=== PATIENT | female | born 1935 | race Caucasian/White ===

== ENCOUNTER → 2018-02-12 10:48 | Outpatient (CLI) | payer MEDICARE ==
[2014-01-29 11:21] VITALS: BMI 20.6
[~2018-02-12 10:48] MED LIST: ASPIRIN325 MG PO; CALCIUM CITRATE1 TAB PO; LOVAZA1 G PO; MAGONATE PO; NORVASC2.5 MG OR; ORACEA40 MG PO
== END | disposition home or self-care (01) ==
LOC: D.US 10:48
DX: R94.5 Abnormal results of liver function studies (principal)

== ENCOUNTER 2018-06-12 08:16 | Outpatient (CLI) | payer MEDICARE ==
[~2018-06-12] VITALS: Ht 165.1 cm; Wt 47.7 kg
[~2018-06-12 08:16] MED LIST changes: -ASPIRIN325 MG PO; +BAYER CHEWABLE81 MG PO; -CALCIUM CITRATE1 TAB PO; +CITRACAL + D E1 EACH PO; -NORVASC2.5 MG OR; +NORVASC2.5 MG PO
[2018-06-12 08:37] LABS: BASOPHILS 0.2 % (0-2); EOSINOPHILS 0.9 % (0-7); HEMATOCRIT 41.9 % (36.0-48.0); HEMOGLOBIN 13.8 g/dL (12-16); LYMPHOCYTES 26.1 % (15-50); MCH 33.5 pg (26.0-34.0); MCHC 32.9 g/dL (31.0-37.0); MCV 101.7 fL (80.0-100.0); MEAN PLATELET VOLUME 11.7 fL (7.4-10.4); MONOCYTES 7.9 % (2-11); NEUTROPHILS 64.9 % (40-80); PLATELET COUNT 173 10x3/uL (130-400); RBC 4.12 10x6/uL (4.00-5.40); RDW 13.7 % (11.5-14.5); WBC 4.7 10x3/uL (4.8-10.8)
[2018-06-12 08:46] LABS: ANION GAP 7.9 mmol/L (8-16); CALCIUM 9.5 mg/dL (8.5-10.1); CREATININE - SERUM 0.8 mg/dL (0.6-1.3); POTASSIUM - SERUM 3.9 mmol/L (3.5-5.1)
[2018-06-12 08:52] LABS: APTT 30.9 SECONDS (22.8-39.4); INR 0.92 (0.85-1.17); PROTIME 11.9 SECONDS (11.6-15.0)
[2018-06-12] MEDS ORDERED: DESERYL50 M2 PO (09:02)
[2018-06-12 09:28] VITALS: Ht 165.1 cm; Wt 47.7 kg
== END 2018-06-12 16:40 | disposition home or self-care (01) ==
LOC: D.SP 08:16 → D.CT 11:00 → D.SP 16:40
PROVIDERS: Radiology Diagnostic Radiology
DX: R74.8 Abnormal levels of other serum enzymes (principal); Z01.812 Encounter for preprocedural laboratory examination

== ENCOUNTER → 2018-06-21 12:51 | Outpatient (CLI) | payer MEDICARE ==
[2018-06-12 09:28] VITALS: BMI 17.5
[~2018-06-21 12:51] MED LIST changes: +DESERYL50 M2 PO
[2018-06-22 17:12] LABS: ANA REFLEX - DIRECT Negative (Negative)
[2018-06-23 19:07] LABS: MITOCHONDRIAL ANTIBODY 116.8 Units (0.0-20.0)
== END | disposition home or self-care (01) ==
LOC: D.LAB 12:51
PROVIDERS: Internal Medicine Gastroenterology
DX: R79.89 Other specified abnormal findings of blood chemistry (principal); K74.3 Primary biliary cirrhosis; L29.8 Other pruritus

== ENCOUNTER → 2018-06-29 12:51 | Outpatient (CLI) | payer MEDICARE ==
[2018-06-12 09:28] VITALS: BMI 17.5
== END | disposition home or self-care (01) ==
LOC: D.NM 12:51
DX: Z00.01 Encounter for general adult medical examination with abnormal findings (principal); L29.9 Pruritus, unspecified; R63.4 Abnormal weight loss; R94.5 Abnormal results of liver function studies

== ENCOUNTER → 2018-07-25 11:15 | Outpatient (CLI) | payer MEDICARE ==
[2018-06-12 09:28] VITALS: BMI 17.5
[2018-07-25 13:20] LABS: HEMATOCRIT 42.3 % (36.0-48.0); HEMOGLOBIN 13.9 g/dL (12-16); MCH 33.6 pg (26.0-34.0); MCHC 32.9 g/dL (31.0-37.0); MCV 102.2 fL (80.0-100.0); MEAN PLATELET VOLUME 12.7 fL (7.4-10.4); PLATELET COUNT 166 10x3/uL (130-400); RBC 4.14 10x6/uL (4.00-5.40); RDW 13.2 % (11.5-14.5); WBC 4.3 10x3/uL (4.8-10.8)
[2018-07-25 13:23] LABS: ALBUMIN 3.5 g/dL (3.4-5.0); BILIRUBIN - DIRECT 0.53 mg/dL (0.00-0.30); BILIRUBIN - INDIRECT 0.18 mg/dL (0.00-1.00); BILIRUBIN - TOTAL 0.71 mg/dL (0.2-1.3); PROTEIN - SERUM 8.5 g/dL (6.4-8.2)
[2018-07-25 13:29] LABS: INR 0.94 (0.85-1.17); PROTIME 12.1 SECONDS (11.6-15.0)
[2018-07-25 14:08] LABS: LYMPHOCYTES 38 % (15-50); MONOCYTES 7 % (2-11); NEUTROPHILS 54 % (40-80); PLATELET ESTIMATE NORMAL
[2018-07-26 08:23] LABS: HEPATITIS C ANTIBODY 0.1 S/CO RAT (0.0-0.9)
[2018-07-26 13:19] LABS: ANA REFLEX - DIRECT Negative (Negative)
[2018-07-27 12:20] LABS: MITOCHONDRIAL ANTIBODY 124.4 Units (0.0-20.0); SMOOTH MUSCLE ABS (ACTIN) 46 Units (0-19)
== END | disposition home or self-care (01) ==
LOC: D.US 11:15
PROVIDERS: Internal Medicine Gastroenterology
DX: R79.89 Other specified abnormal findings of blood chemistry (principal); R63.4 Abnormal weight loss; L29.9 Pruritus, unspecified

== ENCOUNTER → 2018-12-24 11:08 | Outpatient (CLI) | payer MEDICARE ==
[2018-06-12 09:28] VITALS: BMI 17.5
[2018-12-24 12:06] LABS: ALBUMIN 3.4 g/dL (3.4-5.0); BILIRUBIN - DIRECT 0.3 mg/dL (0.00-0.30); BILIRUBIN - INDIRECT 0.27 mg/dL (0.00-1.00); BILIRUBIN - TOTAL 0.57 mg/dL (0.2-1.3); PROTEIN - SERUM 7.7 g/dL (6.4-8.2)
== END | disposition home or self-care (01) ==
LOC: D.LAB 12-19 09:30 → D.US 09:00 → D.LAB 11:08
PROVIDERS: ATTEND Internal Medicine Gastroenterology
DX: K74.3 Primary biliary cirrhosis (principal); K74.0 Hepatic fibrosis

== ENCOUNTER → 2019-03-29 11:01 | Outpatient (CLI) | payer MEDICARE ==
[2018-06-12 09:28] VITALS: BMI 17.5
[2019-03-29 11:27] LABS: BASOPHILS 0.3 % (0-2); EOSINOPHILS 1.1 % (0-7); HEMATOCRIT 42.1 % (36.0-48.0); HEMOGLOBIN 14.4 g/dL (12-16); LYMPHOCYTES 26.7 % (15-50); MCH 33.7 pg (26.0-34.0); MCHC 34.2 g/dL (31.0-37.0); MCV 98.6 fL (80.0-100.0); MEAN PLATELET VOLUME 12.1 fL (7.4-10.4); MONOCYTES 6.1 % (2-11); NEUTROPHILS 65.8 % (40-80); PLATELET COUNT 154 10x3/uL (130-400); RBC 4.27 10x6/uL (4.00-5.40); RDW 12.8 % (11.5-14.5); WBC 3.8 10x3/uL (4.8-10.8)
[2019-03-29 11:40] LABS: ALBUMIN 3.7 g/dL (3.4-5.0); ALKALINE PHOSPHATASE 350 U/L (46-116); ALT (SGPT) 75 U/L (10-68); BILIRUBIN - DIRECT 0.37 mg/dL (0.00-0.30); BILIRUBIN - INDIRECT 0.24 mg/dL (0.00-1.00); BILIRUBIN - TOTAL 0.61 mg/dL (0.2-1.3); CALC OSMOLALITY 288 mosm/kg (275-300); CALCIUM 9.4 mg/dL (8.5-10.1); CARBON DIOXIDE 33.3 mmol/L (21.0-32.0); CHLORIDE - SERUM 107 mmol/L (98-107); CHOL - HDL RATIO 3.3 ratio (2.3-4.1); CHOLESTEROL, TOTAL 258 mg/dL (0-200); CREATININE - SERUM 0.7 mg/dL (0.6-1.3); GLUCOSE 91 mg/dL (74-106); HDL CHOLESTEROL 78 mg/dL (32-96); LDL CHOLESTEROL 159 mg/dL (0-100); POTASSIUM - SERUM 4.6 mmol/L (3.5-5.1); PROTEIN - SERUM 7.8 g/dL (6.4-8.2); SODIUM 144 mmol/L (136-145); TRIGLYCERIDE 108 mg/dL (30-200); UREA NITROGEN 19 mg/dL (7-18); eGFR NON AFRICAN AMERICAN 84 mL/min (90-120)
[2019-03-29 12:02] LABS: INR 0.92 (0.85-1.17); PROTIME 11.9 SECONDS (11.6-15.0)
== END | disposition home or self-care (01) ==
LOC: D.LAB 11:01
PROVIDERS: ATTEND Internal Medicine Gastroenterology
DX: K80.80 Other cholelithiasis without obstruction (principal); R74.8 Abnormal levels of other serum enzymes; J84.10 Pulmonary fibrosis, unspecified

== ENCOUNTER → 2019-06-27 12:12 | Outpatient (CLI) | payer MEDICARE ==
[2018-06-12 09:28] VITALS: BMI 17.5
[2019-06-27 12:48] LABS: BASOPHILS 0.2 % (0-2); EOSINOPHILS 0.2 % (0-7); HEMATOCRIT 43.5 % (36.0-48.0); HEMOGLOBIN 14.3 g/dL (12-16); IMMATURE GRANULOCYTES 0.2 % (0-5); LYMPHOCYTES 25.2 % (15-50); MCH 33.7 pg (26.0-34.0); MCHC 32.9 g/dL (31.0-37.0); MCV 102.6 fL (80.0-100.0); MONOCYTES 6.9 % (2-11); NEUTROPHILS 67.3 % (40-80); PLATELET COUNT 168 10x3/uL (130-400); RBC 4.24 10x6/uL (4.00-5.40); RDW 12.7 % (11.5-14.5); WBC 5.2 10x3/uL (4.8-10.8)
[2019-06-27 13:05] LABS: ALBUMIN 3.6 g/dL (3.4-5.0); ANION GAP 8.2 mmol/L (8-16); BILIRUBIN - DIRECT 0.33 mg/dL (0.00-0.30); BILIRUBIN - INDIRECT 0.29 mg/dL (0.00-1.00); BILIRUBIN - TOTAL 0.62 mg/dL (0.2-1.3); CALCIUM 9.4 mg/dL (8.5-10.1); CARBON DIOXIDE 32.8 mmol/L (21.0-32.0); CREATININE - SERUM 0.8 mg/dL (0.6-1.3); PROTEIN - SERUM 7.5 g/dL (6.4-8.2)
[2019-06-27 13:16] LABS: INR 0.94 (0.85-1.17); PROTIME 12.1 SECONDS (11.6-15.0)
== END | disposition home or self-care (01) ==
LOC: D.US 06-25 08:30 → D.LAB 06-25 09:00 → D.US 06-25 11:00 → D.LAB 06-25 11:30
PROVIDERS: ATTEND Internal Medicine Gastroenterology
DX: K74.3 Primary biliary cirrhosis (principal)

== ENCOUNTER 2019-08-07 11:00 | Outpatient (CLI) | payer MEDICARE ==
[~2019-08-07] VITALS: Ht 165.1 cm; Wt 44.7 kg
--- NOTE | ~2019-08-07 | HEMODYNAMI ---
PATIENT:GABRIELLA CANTU MEDICAL RECORD: [id number] : 33 LOCATION:D.CAT ADMISSION DATE: 08/07/19 Generatedon:08/07/201914:06 Patient name: GABRIELLA CANTU Patient #: [id number] SSN: [id number] : 1935 Date of study: 08/07/2019 Page: Of Hemodynamic Procedure Report Patient Data Patient Demographics Procedure consent was obtained First Name: GABRIELLA Gender: Female Last Name: ALONDRA : 1935 Middle Initial: FARIBA Age: 84 year(s) Patient #: [id number] Race: SSN: [id number] Additional ID: [id number] Contact details [address]: [address] [place] [address] State: [place] City: [place] Zip code: [address] Past Medical History Allergies Allergen Reaction Date Comments Reported Other allergy 08/07/2019 ERYTHROMYCIN, HYDROCHLOROQUINE, LOVAZA, OS-BASIA, PCN, VANCOMYCIN Admission Admission Data Admission Date: 08/07/2019 Admission Time: 11:00 Lab Results Lab Result Date: 08/07/2019 Lab Result Time: 0:00 Biochemistry Name Units Result Min Max BUN mg/dl 27 --(----)-* 7 18 Creatinine mg/dl 0.7 --(*---)-- 0.6 1.3 eGFR ml/min 84 -*(----)-- 90 120 NONAFRICAN CBC Name Units Result Min Max Hematocrit % 39.6 -*(----)-- 42 54 Hemoglobin g/dl 12.8 -*(----)-- 13.5 17.5 Procedure Procedure Types Cath Procedure Diagnostic Procedure Sedation Charges Moderate Sedation up to 30 minutes PCI Procedure Hemochron ACT Test Peripheral Cath Diagnostic Procedure State Attorney Peripheral Procedures AFRO (Diagnostic) Peripheral vascular Intervention Angioplasty Angioplasty Fem/Pop Procedure Description Procedure Date Procedure Date: 08/07/2019 Procedure Start Time: 13:18 Procedure End Time: 14:05 Procedure Staff Name Function Luis Kirby MD Performing Physician Emilia Zheng RT Monitor Brielle Rutherford RT Scrub Hank Eduardo RN Nurse Indication Coronary risk factors Procedure Data Cath Procedure Fluoroscopy Diagnostic fluoroscopy Total fluoroscopy Time: 7.9 time: 7.9 min min Diagnostic fluoroscopy Total fluoroscopy dose: 105 dose: 105 mGy mGy Contrast Material Contrast Material Type Amount (ml) Isovue 370 87 Entry Location Entry Primary Successful Side Size Upsize Upsize Entry Closure Succes sful Closure Location (Fr) 1 (Fr) 2 (Fr) Remarks Device Remarks Femoral Left 5 Fr 6 Fr Exoseal artery Short Estimated blood loss: 10 ml Diagnostic catheters Device Type Used For End Catheter Placement DIAGNOSTIC UF 5Fr Procedure catheter ([id number]) DIAGNOSTIC IM 5Fr Procedure catheter ([id number]) Procedure Complications No complications Procedure Medications Medication Administration Route Dosage Oxygen etCO2 Nasal cannula 2 l/min Lidocaine 2% added to field 20 Heparin Flush Bag added to field 2 bags (1000units/500ml NS) 0.9% NaCl I.V. 100 ml/hr Versed I.V. 1 mg Fentanyl I.V. 50 mcg Versed I.V. 1 mg Heparin Bolus I.V. 4000 units Fentanyl I.V. 50 mcg Hemodynamics Rest HGB: 12.8 (g/dl) Heart Rate: 64 (bpm) Snapshots Pre Cath Intra NCS Post Cath Vital Signs Time Heart Resp SPO2 etCO2 NIBP (mmHg) Rhythm Pain Sedation Rate (ipm) (%) (mmHg) Status Level (bpm) 13:07:55 73 12 96 0 138/65(99) NSR 0 (11) 10(A) , No pain 13:12:09 69 22 95 5.2 126/59(80) NSR 0 (11) 10(A) , No pain 13:16:19 69 14 98 1.5 120/59(89) NSR 0 (11) 10(A) , No pain 13:20:25 69 13 98 0.7 117/58(85) NSR 0 (11) 9(A) , No pain 13:24:32 69 28 98 12.8 105/50(77) NSR 0 (11) 9(A) , No pain 13:28:36 69 25 98 11.2 114/54(86) NSR 0 (11) 9(A) , No pain 13:32:42 70 22 98 12 114/53(82) NSR 0 (11) 9(A) , No pain 13:36:47 70 23 98 15 117/53(88) NSR 0 (11) 9(A) , No pain 13:40:56 70 20 98 5.2 113/54(89) NSR 0 (11) 9(A) , No pain 13:45:01 70 19 97 9.7 110/56(88) NSR 0 (11) 9(A) , No pain 13:49:05 71 19 97 42.9 120/58(89) NSR 0 (11) 9(A) , No pain 13:53:11 73 15 97 16.5 117/59(92) NSR 0 (11) 10(A) , No pain 13:57:17 75 17 97 31.6 123/61(102) NSR 0 (11) 10(A) , No pain 14:01:24 79 36 95 33.1 124/63(95) NSR 0 (11) 10(A) , No pain 14:05:30 73 11 97 9.7 130/66(101) NSR 0 (11) 10(A) , No pain Medications Time Medication Route Dose Verified Delivered Reason Notes Effectiveness by by 13:10:42 Oxygen etCO2 2 Luis Buffie used for Nasal l/min Kofi Eduardo RN procedure cannula 13:10:48 Lidocaine 2% added 20ml Luis Luis for local to vial Kofi Kirby MD anesthetic field 13:10:54 Heparin Flush added 2 Luis Luis used for Bag to bags Kofi Kirby MD procedure (1000units/500ml field NS) 13:11:04 0.9% NaCl I.V. 100 Luis Buffie Per physician ml/hr Kofi Eduardo RN 13:15:25 Versed I.V. 1 mg Luis Buffie for sedation Kofi Eduardo RN 13:15:31 Fentanyl I.V. 50 Luis Buffie for sedation mcg Kofi Eduardo RN 13:21:04 Versed I.V. 1 mg Luis Buffie for sedation Kofi Eduardo RN 13:28:26 Fentanyl I.V. 50 Luis Buffie for sedation mcg Kofi Eduardo RN 13:38:06 Heparin Bolus I.V. 4000 Luis Buffie for verif ied units Kofi Eduardo RN anticoagulation with dr kirby Procedure Log Time Note 12:38:03 Informed consent obtained and on chart 12:45:23 Lab Result : eGFR NONAFRICAN 84 ml/min 12:45:23 Lab Result : Hemoglobin 12.8 g/dl 12:45:23 Lab Result : BUN 27 mg/dl 12:45:23 Lab Result : Creatinine 0.7 mg/dl 12:45:23 Lab Result : Hematocrit 39.6 % 12:45:30 Diagnostic Cath Status : Elective 12:46:01 Indication : Coronary risk factors 12:46:07 Procedure Status Elective Heart Cath (OP). 12:46:11 Brielle Rutherford RT(R) sent for patient. Start room use. 12:46:47 Time tracking: Regular hours (M-F 7:00 - 5:00) 12:46:52 Plan of Care:Hemodynamics will remain stable., Cardiac rhythm will remain stable., Comfort level will be maintained., Respiratory function will remain adequate., Patient/ family verbilizes understanding of procedure., Procedure tolerated without complication., Recovers from procedure without complications.. 12:47:07 H&P Date Dictated: 07/25/2019 Within 30 days and on chart.. 12:47:10 Pre-procedure instructions explained to patient. 12:47:11 Pre-op teaching completed and patient verbalized understanding. 12:47:15 Family in waiting room. 12:47:18 Patient NPO since Midnight. 12:48:17 Patient allergic to Other allergyERYTHROMYCIN, HYDROCHLOROQUINE, LOVAZA, OS-BASIA, PCN, VANCOMYCIN 12:48:38 Lab results completed and on chart. 12:48:43 Stress Test: no; N/A ? 13:06:36 Patient received from Pre/Post Procedure Room to CCL 1 Alert and oriented. Tansferred to table in Supine position. 13:06:38 Warm blankets applied, and adam hugger turned on for patient comfort. 13:06:38 Correct patient and procedure confirmed by team. 13:06:39 ECG and BP/O2 sat monitors applied to patient. 13:06:41 Vital chart was started 13:06:46 Is the patient allergic to Iodine/contrast media? Yes. 13:06:47 Was the patient premedicated? Yes 13:06:49 Is patient on blood thinner?Yes 13:06:52 ACC The patient was administered the following blood thiners within the last 24 hours: ACCAspirin 13:06:55 Patient diabetic? No. 13:06:56 If diabetic: On Metformin? N/A 13:07:00 Patient not . Patient is over age 55. 13:07:01 ----Pre-sedation anethsthesia assessment.---- 13:07:05 Previous problem with sedation/anesthesia? No ? 13:07:06 Snore? Yes 13:07:08 Sleep apnea? No 13:07:09 Deviated septum? No 13:07:10 Opens mouth fully? Yes 13:07:11 Sticks out tongue? Yes 13:07:15 Airway obstruction? Yes COPD 13:07:19 Dentures? No ? 13:07:23 Pre procedure: right dorsailis pedis pulse 2+ Normal; easily identifiable; not easily obliterated 13:07:26 Patient pain scale 0/10 ?. 13:07:33 Bilateral groins area was prepped with chlora-prep and draped in sterile fashion 13:07:34 Alarms reviewed by R. N. 13:07:34 Sharps counted by scrub and verified by R.N. 13:07:44 Rhythm: sinus rhythm 13:07:46 Baseline sample Acquired. 13:07:46 Full Disclosure recording started 13:08:00 Use device set Femoral Dx 13:08:02 ACIST Syringe (71662) opened to sterile field. 13:08:03 Bag Decanter (2002S) opened to sterile field. 13:08:04 Medline Cath Pack ([id number]) opened to sterile field. 13:08:05 ACIST Hand Control (11774) opened to sterile field. 13:08:07 ACIST Manifold (49657) opened to sterile field. 13:08:11 SHEATH 5FR [place] ([id number]) opened to sterile field. 13:08:11 EMERALD Guide Wire (001-918) opened to sterile field. 13:09:56 IV patent on arrival in right forearm with 0.9% NaCl at O. 13:10:42 Oxygen 2 l/min etCO2 Nasal cannula was administered by Hank Eduardo RN; used for procedure; Verbal order read back and verified. 13:10:48 Lidocaine 2% 20ml vial added to field was administered by Luis Kirby MD; for local anesthetic; Verbal order read back and verified. 13:10:54 Heparin Flush Bag (1000units/500ml NS) 2 bags added to field was administered by Luis Kirby MD; used for procedure; Verbal order read back and verified. 13:11:04 0.9% NaCl 100 ml/hr I.V. was administered by Hank Eduardo RN; Per physician; Verbal order read back and verified. 13:14:19 --------ALL STOP TIME OUT------ 13:14:20 Final Timeout: patient, procedure, and site verified with staff and physician. All members of the team are in agreement. 13:14:23 Bilateral groins site verified by team. 13:14:26 Fire Safety Assessment: A--An alcohol-based skin anteseptic being used preoperatively., C--Open oxygen or nitrous oxide is being used., D--An ESU, laser, or fiber-optic light is being used. 13:14:33 Physical assessment completed. ASA score P 2 - A patient with mild systemic disease as per Luis Kirby MD. 13:14:36 2) 60-89 Mildly reduced kidney function, and other findings (as for stage 1) point to kidney disease. 13:14:40 Maximum allowable contrast dose (3.7 X eGFR X 0.75)233 ml. 13:14:44 Sedation plan: IV Moderate Sedation Medication:Versed, Fentanyl 13:15:25 Versed 1 mg I.V. was administered by Hank Eduardo RN; for sedation; Verbal order read back and verified. 13:15:31 Fentanyl 50 mcg I.V. was administered by Hank Eduardo RN; for sedation; Verbal order read back and verified. 13:18:01 Procedure started. 13:18:27 Local anesthetic to left femerol artery with Lidocaine 2% by Luis Kirby MD.INITIAL ACCESS ONLY 13:21:04 Versed 1 mg I.V. was administered by Hank Eduardo RN; for sedation; Verbal order read back and verified. 13:21:37 A 5 Fr sheath was inserted into the Left Femoral artery 13:21:46 A DIAGNOSTIC UF 5Fr catheter ([id number]) was advanced over the wire and used for Procedure. 13:22:54 Abdominal angiogram w/ runoff was performed. 13:23:11 Injector settings: Ml/sec: 10, Volume: 20, 13:23:32 Left leg runoff performed. 13:23:58 Right leg runoff performed. 13:27:24 Catheter exchanged over wire. 13:28:08 A DIAGNOSTIC IM 5Fr catheter ([id number]) was advanced over the wire and used for Procedure. 13:28:09 A 5 FrFr IM catheter was inserted over the wire. 13:28:26 Fentanyl 50 mcg I.V. was administered by Hank Eduardo RN; for sedation; Verbal order read back and verified. 13:29:13 Right leg runoff performed. 13:32:42 Catheter exchanged over wire. 13:32:43 Proceeding to intervention. OF THE RT 13:34:53 INFLATOR Merit BasixCompak ([id number]) opened to sterile field. 13:34:54 WHISPER 300cm guide wire ([id number]) opened to sterile field. 13:36:28 SHEATH 6FR Destination (RSR01) opened to sterile field. 13:37:20 Sheath upsized to a 6 Fr Short. 13:37:20 6FR DESTINATION SHEATH INSERTED. 13:37:57 WHISPER 300 ADVANCED 13:38:06 Heparin Bolus 4000 units I.V. was administered by Hank Eduardo RN; for anticoagulation; verified with dr kirby Verbal order read back and verified. 13:40:17 Wire advanced across lesion. 13:42:27 Inflate balloon Inflation number: 1 A SABER 4.0 x 4 x 150 balloon ([id number]) was prepped and advanced across the Distal Femoral, Right , then inflated to 6 TRAVON for 0:00 (min:sec) . 13:43:21 Inflation number: 2 The SABER 4.0 x 4 x 150 balloon ([id number]) was reinflated across the Distal Femoral, Right , to 5 TRAVON for 0:00 (min:sec) . 13:47:55 Inflation number: 1 The SABER 4.0 x 4 x 150 balloon ([id number]) was reinflated across the Proximal Popliteal, Right , to 7 TRAVON for 0:00 (min:sec) . 13:51:19 BALLOON, WIRE, GUIDE REMOVED. 13:53:25 Sheath removed intact; hemostasis achieved with Exoseal to the Left Femoral artery. 13:54:08 SHEATH 6FR Destination (RSR01) opened to sterile field. 13:54:16 EXOSEAL 6Fr (EX600) opened to sterile field. 13:54:20 Procedure ended.(Physican Out) 13:54:44 Fluoroscopy time 07.90 minutes. 13:54:48 Fluoroscopy dose: 105 mGy 13:54:48 Flurop Dose total: 105 13:54:54 Dose Area Product 47011 mGy/cm. 13:55:05 Contrast amount:Isovue 370 87ml. 13:55:08 Maximum allowable dose exceeded? No. 13:55:09 Sharps counted by scrub and verified by R.N. 13:55:17 Post-op/insertion site Left Femoral artery dressed using a 4 x 4 and Tegaderm. 13:55:24 Post left femerol artery:stable, soft, clean and dry 13:55:26 Post Procedure Pulses reassessed and unchanged 13:55:30 Post procedure: right dorsailis pedis pulse 2+ Normal; easily identifiable; not easily obliterated. 13:55:33 Post-procedure physical assessment completed. ASA score P 2 - A patient with mild systemic disease as per Luis Kirby MD. 13:55:36 Post procedure rhythm: unchanged. 13:55:39 Estimated blood loss: 10 ml 13:55:42 Post procedure instruction explained to patient.Patient verbalizes understanding. 13:55:44 Patient needs reinforcement of post procedure teaching. 13:55:46 ACT drawn and resulted at 259 seconds. (normal therapeutic range 180-240 seconds). 14:02:27 Procedure type changed to Cath procedure, Diagnostic procedure, Sedation Charges, Moderate Sedation up to 30 minutes, PCI procedure, Hemochron ACT Test, Peripheral Cath Diagnostic Procedure, State Attorney Peripheral Procedures, AFRO (Diagnostic), Peripheral vascular Intervention, Angioplasty, Angioplasty Fem/Pop 14:04:59 Procedure Complication : No complications 14:05:01 Vital chart was stopped 14:05:03 [facility] Findings: MVD- PCI performed (see procedure note) 14:05:08 Procedure ended. 14:05:08 Full Disclosure recording stopped 14:05:19 Procedure and supply charges have been captured, reviewed, submitted and are correct. 14:05:22 Operative report dictated upon procedure completion. 14:05:23 See physician's report for complete and final results. 14:05:24 Report given to Pre/Post Procedure Room. 14:05:28 Patient transfered to Pre/Post Procedure Room with Stretcher. 14:05:29 End room use (Document Last) 14:06:03 End room use (Document Last) 14:06:26 End room use (Document Last) Intervention Summary Intervention Notes Time ActionType Lesion and Equipment Action# Pressure Duration Attributes Used 13:42:27 Inflate Distal SABER 4.0 x 1 6 00:00 balloon Femoral, 4 x 150 Right balloon ([id number]) 13:43:21 Reinflate Distal SABER 4.0 x 2 5 00:00 balloon Femoral, 4 x 150 Right balloon ([id number]) 13:47:55 Reinflate Proximal SABER 4.0 x 1 7 00:00 balloon Popliteal, 4 x 150 Right balloon ([id number]) Device Usage Item Name Manufacture Quantity Catalog Hospital Part Current Minimal L ot# / Number Charge Number Stock Stock Serial# Code ACIST Acist 1 [id number] 278654 886648 019826 20 Syringe Medical (18138) Systems Inc Bag Microtek 1 2001S 282731 06618 702638 5 Decanter Medical Inc. () Medline Medline 1 [id number] 12284 337533 5 Cath Pack ([id number]) ACIST Hand Acist 1 74864 112070 229898 896051 5 Control Medical (82865) Systems Inc ACIST Acist 1 17091 349842 700592 037587 5 Manifold Medical (39715) Systems Inc SHEATH 5FR Terumo 1 PUI932 623697 087657 881210 5 [place] (VVW584) EMERALD Cardinal 1 502-455 424739 569935 934195 5 Guide Wire Health (502-455) DIAGNOSTIC Cardinal 1 [id number] 619151 683351 212697 10 UF 5Fr Health catheter (976542P2) DIAGNOSTIC Cardinal 1 [id number] 323853 683033 597771 5 IM 5Fr Health catheter ([id number]) INFLATOR Merit 1 SK2442 263067 561936 165437 15 [facility] Medical BasixCompak (VA2044) WHISPER Pyle 1 [id number] 950160 446259 991524 5 300cm guide Vascular wire ([id number]) SHEATH 6FR Terumo 2 RSR01 254878 13928 811977 5 Destination (RSR01) SABER 4.0 x Cardinal 1 [id number] 222344 091074 5 4 x 150 Health balloon ([id number]) EXOSEAL 6Fr Cardinal 1 EX600 032640 743495 573765 10 (EX600) Health Signature Audit [place] Stage Time Signature Unsigned Intra-Procedure 08/07/2019 Emilia Zheng 2:06:03 PM RT(R) Intra-Procedure 08/07/2019 Hank Eduardo RN 2:06:26 PM Intra-Procedure 08/07/2019 Luis Kirby MD 2:06:55 PM [facility] [address] [facility] [place] [address]
[2019-08-07] MEDS ORDERED: URSO FORTE500 MG PO (11:27)
[2019-08-07 11:33] VITALS: BP 130/59; Ht 165.1 cm; Wt 44.7 kg
[2019-08-07 11:52] LABS: BASOPHILS 0.2 % (0-2); EOSINOPHILS 0.4 % (0-7); HEMATOCRIT 39.6 % (36.0-48.0); HEMOGLOBIN 12.8 g/dL (12-16); IMMATURE GRANULOCYTES 0.2 % (0-5); LYMPHOCYTES 22.8 % (15-50); MCH 33.2 pg (26.0-34.0); MCHC 32.3 g/dL (31.0-37.0); MCV 102.6 fL (80.0-100.0); MEAN PLATELET VOLUME 12.4 fL (7.4-10.4); MONOCYTES 8.4 % (2-11); PLATELET COUNT 154 10x3/uL (130-400); RBC 3.86 10x6/uL (4.00-5.40); RDW 12.6 % (11.5-14.5); WBC 4.9 10x3/uL (4.8-10.8)
[2019-08-07 12:00] LABS: CALC OSMOLALITY 292 mosm/kg (275-300); CALCIUM 9.5 mg/dL (8.5-10.1); CARBON DIOXIDE 31.6 mmol/L (21.0-32.0); CHLORIDE - SERUM 106 mmol/L (98-107); CREATININE - SERUM 0.7 mg/dL (0.6-1.3); GLUCOSE 110 mg/dL (74-106); POTASSIUM - SERUM 4.4 mmol/L (3.5-5.1); SODIUM 144 mmol/L (136-145); UREA NITROGEN 27 mg/dL (7-18); eGFR NON AFRICAN AMERICAN 84 mL/min (90-120)
--- NOTE | 2019-08-07 14:15 | NUR ---
REC'D TO ROOM 6 FROM [employer] WORK[employer] VIA STRETCHER. MONITORS ESTAB. - SEE NURSING ASSESSMENT. ALARMS ON AND C/L IN REACH.
--- NOTE | 2019-08-07 14:30 | NUR ---
PT RESTING QUIETLY, VSS. L GROIN SITE C/D/I, NO S/S OF BLEEDING OR HEMATOMA. PULSES EASILY DOPPLERED, FEET WARM.
[2019-08-07] MEDS ORDERED: PLAVIX75 MG PO (14:39)
--- NOTE | 2019-08-07 15:00 | NUR ---
L GROIN SITE SOFT, C/D/I, NO S/S OF BLEEDING OR HEMATOMA. PULSES EASILY DOPPLERED. FEET WARM. PT AWAKENS EASILY AND DENIES NEEDS. C/L IN REACH.
--- NOTE | 2019-08-07 15:30 | NUR ---
DR. SIMS IN TO SEE PT, UPDATE GIVEN AND QUESTIONS ANSWERED. VSS. FEET WARM WITH EASILY DOPPLERED PULSES. PT DENIES NEEDS. C/L IN REACH.
--- NOTE | 2019-08-07 16:00 | NUR ---
PT RESTING QUIETLY, VSS. FEET WARM, WEAK PALP PULSES WITH BRISK CAP REFILL. L GROIN SITE C/D/I, NO S/S OF BLEEDING OR HEMATOMA.
--- NOTE | 2019-08-07 16:35 | NUR ---
L GROIN SITE SOFT, NO S/S OF BLEEDING OR HEMATOMA. FEET WARM. VSS. C/L IN REACH.
--- NOTE | 2019-08-07 17:14 | NUR ---
PT FRIEND IS HERE TO TAKE HER HOME. HOB ELEVATED AND SANDWICH PROVIDED PER PT REQUEST. VSS. GROIN SITE SOFT, DSG C/D/I.
--- NOTE | 2019-08-07 17:45 | NUR ---
PIV D/C'D WITH CATH INTACT. DSG APPLIED. PT ASSISTED TO BS, VSS, NO DIZZINESS, GROIN SITE C/D/I. PT ASSITED WITH GETTING DRESSED.
--- NOTE | 2019-08-07 18:00 | NUR ---
D/C INSTRUCTIONS AND MEDICATIONS REVIEWED WITH PT AND FRIEND. PT VERBALIZED UNDERSTANDING OF ALL INSTRUCTIONS. PT D/C'D VIA WC AFTER GOING TO BR. PT HAS ALL BELONGINGS AND PAPERWORK IN HAND. PT INFORMED OF NEW PRESCRIPTION BEING CALLED IN TO PHARMACY PER HER REQUEST.
== END 2019-08-07 18:00 | disposition home or self-care (01) ==
LOC: D.CATH 11:00
PROVIDERS: ATTEND Internal Medicine Cardiovascular Disease
DX: I73.9 Peripheral vascular disease, unspecified (principal); E78.5 Hyperlipidemia, unspecified; I25.10 Atherosclerotic heart disease of native coronary artery without angina pectoris; Z95.4 Presence of other heart-valve replacement

== ENCOUNTER → 2020-01-14 11:18 | Outpatient (CLI) | payer MEDICARE ==
[2019-08-07 11:33] VITALS: BMI 16.4
[~2020-01-14 11:18] MED LIST changes: +PLAVIX75 MG PO; +URSO FORTE500 MG PO
[2020-01-14 12:13] LABS: BASOPHILS 0.3 % (0-2); HEMATOCRIT 38.5 % (36.0-48.0); HEMOGLOBIN 11.5 g/dL (12-16); IMMATURE GRANULOCYTES 0.3 % (0-5); LYMPHOCYTES 25.7 % (15-50); MCH 25.6 pg (26.0-34.0); MCHC 29.9 g/dL (31.0-37.0); MCV 85.6 fL (80.0-100.0); MONOCYTES 7.5 % (2-11); NEUTROPHILS 65.2 % (40-80); PLATELET COUNT 155 10x3/uL (130-400); RDW 23.5 % (11.5-14.5); WBC 3.9 10x3/uL (4.8-10.8)
[2020-01-14 12:14] LABS: INR 0.82 (0.85-1.17); PROTIME 11.3 SECONDS (11.6-15.0)
[2020-01-14 12:20] LABS: ALBUMIN 3.4 g/dL (3.4-5.0); ALKALINE PHOSPHATASE 301 U/L (30-120); ALT (SGPT) 72 U/L (10-68); BILIRUBIN - DIRECT 0.25 mg/dL (0.00-0.30); BILIRUBIN - INDIRECT 0.24 mg/dL (0.00-1.00); BILIRUBIN - TOTAL 0.49 mg/dL (0.2-1.3); CALC OSMOLALITY 290 mosm/kg (275-300); CALCIUM 9.6 mg/dL (8.5-10.1); CHLORIDE - SERUM 108 mmol/L (98-107); CREATININE - SERUM 0.7 mg/dL (0.6-1.3); GLUCOSE 90 mg/dL (74-106); POTASSIUM - SERUM 4.5 mmol/L (3.5-5.1); PROTEIN - SERUM 7.5 g/dL (6.4-8.2); SODIUM 144 mmol/L (136-145); UREA NITROGEN 25 mg/dL (7-18); eGFR NON AFRICAN AMERICAN 84 mL/min (90-120)
== END | disposition home or self-care (01) ==
LOC: D.LAB 12-30 09:15 → D.US 12-30 09:30 → D.LAB 12-30 09:30 → D.US 12-30 11:00
PROVIDERS: ATTEND Internal Medicine Gastroenterology
DX: K74.3 Primary biliary cirrhosis (principal)

== ENCOUNTER → 2020-12-22 11:16 | Outpatient (CLI) | payer MEDICARE ==
[2019-08-07 11:33] VITALS: BMI 16.4
[2020-12-22 12:14] LABS: INR 1.06 (0.85-1.17); PROTIME 12.8 SECONDS (11.6-15.0)
[2020-12-22 12:20] LABS: ALBUMIN 3.1 g/dL (3.4-5.0); ALKALINE PHOSPHATASE 298 U/L (30-120); ALT (SGPT) 71 U/L (10-68); BILIRUBIN - INDIRECT 0.31 mg/dL (0.00-1.00); BILIRUBIN - TOTAL 0.81 mg/dL (0.2-1.3); CALC OSMOLALITY 289 mosm/kg (275-300); CALCIUM 9.3 mg/dL (8.5-10.1); CARBON DIOXIDE 33.6 mmol/L (21.0-32.0); CHLORIDE - SERUM 106 mmol/L (98-107); CREATININE - SERUM 0.7 mg/dL (0.6-1.3); GLUCOSE 87 mg/dL (74-106); PROTEIN - SERUM 7.4 g/dL (6.4-8.2); SODIUM 145 mmol/L (136-145); UREA NITROGEN 17 mg/dL (7-18); eGFR NON AFRICAN AMERICAN 84 mL/min (90-120)
== END | disposition home or self-care (01) ==
LOC: D.US 11:15
PROVIDERS: ATTEND Internal Medicine Gastroenterology
DX: K76.0 Fatty (change of) liver, not elsewhere classified (principal)